=== PATIENT | male | born 1985 | race African-American/Black ===

== ENCOUNTER 2017-09-24 08:35 | Emergency (ER) | payer OTHER ==
--- NOTE | 2017-09-24 09:22 | RAD ---
LEFT SHOULDER THREE VIEWS: History: Shoulder pain. FINDINGS: AC and glenohumeral joints appear unremarkable. There are no signs of fracture or other findings. IMPRESSION: Unremarkable left shoulder. POS: [facility]
[2017-09-24] MEDS ORDERED: Ketorolac Tromethamine 60 MG/2 ML VIAL ONE (11:05)
[2017-09-24] MEDS ORDERED: Dexamethasone 4 mg/ml Vial ONE (11:06)
== END 2017-09-24 11:11 | disposition home or self-care (01) ==
LOC: ERS 08:35
DX: M75.52 Bursitis of left shoulder (principal); I48.91 Unspecified atrial fibrillation; E11.9 Type 2 diabetes mellitus without complications; M86.9 Osteomyelitis, unspecified; E78.5 Hyperlipidemia, unspecified; I10 Essential (primary) hypertension; F17.210 Nicotine dependence, cigarettes, uncomplicated; Z79.4 Long term (current) use of insulin; Z79.899 Other long term (current) drug therapy
CPT/HCPCS: 96372; J1100; J1885

== ENCOUNTER 2018-05-30 09:46 | Emergency (ER) | payer OTHER ==
--- NOTE | 2018-05-30 12:20 | RAD ---
LEFT SHOULDER 3 VIEWS: Date: 05/30/18 COMPARISON: None. HISTORY: Injury, trauma, pain. FINDINGS: There is no widening of the acromioclavicular or coracoclavicular interspace. No displaced fracture o r evidence of dislocation. IMPRESSION: No acute findings. POS: [facility]
--- NOTE | 2018-05-30 12:34 | RAD ---
2 VIEWS CHEST: Date: 05/30/18 COMPARISON: 02/06/16. HISTORY: Injury, trauma, pain. FINDINGS: Lungs are clear. Heart and mediastinal contours are grossly unremarkable. No acute osseous abnormalit y. IMPRESSION: No acute findings. POS: [facility]
== END 2018-05-30 11:21 | disposition home or self-care (01) ==
LOC: ERS 09:46
DX: R07.89 Other chest pain (principal); M25.512 Pain in left shoulder; E11.9 Type 2 diabetes mellitus without complications
CPT/HCPCS: 71046

== ENCOUNTER 2019-08-25 08:17 | Outpatient (CLI) | payer OTHER ==
--- NOTE | 2019-08-25 08:34 | RAD ---
2 view chest: [08/25/2019] Comparison:05/30/2018 HISTORY: Shortness of breath FINDINGS: Heart and mediastinal contours are grossly unremarkable. No pneumothorax or pleural fluid. No focal consolidation or alveolar edema. IMPRESSION: No acute findings.
== END 2019-08-25 08:18 | disposition home or self-care (01) ==
LOC: RAD 08:17
PROVIDERS: ATTEND Internal Medicine Critical Care Medicine
DX: R06.00 Dyspnea, unspecified (principal)
CPT/HCPCS: 71046

== ENCOUNTER 2019-10-26 20:30 | Outpatient (CLI) | payer OTHER | END 2019-10-26 20:31 | disposition home or self-care (01) | LOC: SLEEPLAB 20:30 | PROVIDERS: ATTEND Internal Medicine Critical Care Medicine | DX: G47.33 Obstructive sleep apnea (adult) (pediatric) (principal); R53.83 Other fatigue; R09.89 Other specified symptoms and signs involving the circulatory and respiratory systems | CPT/HCPCS: 95811 ==

== ENCOUNTER 2020-11-30 08:18 | Outpatient (CLI) | payer OTHER | END 2020-11-30 08:19 | disposition home or self-care (01) | LOC: BICULT 08:18 | PROVIDERS: ATTEND Specialist | DX: R10.13 Epigastric pain (principal); N28.89 Other specified disorders of kidney and ureter; N28.1 Cyst of kidney, acquired; N18.9 Chronic kidney disease, unspecified; R16.0 Hepatomegaly, not elsewhere classified | CPT/HCPCS: 76705 ==

== ENCOUNTER 2021-01-27 13:25 | Inpatient (IN) | payer OTHER ==
[2021-01-27 14:40] LABS: #Eosinphils 0.5 thou/uL (0.0-0.7); #Monocytes 0.6 thou/uL (0.11-0.59); #Neutrophils 6.8 thou/uL (1.40-6.50); %Basophils 0.3 % (0.0-1.0); %Eosinophils 4.6 % (0.0-10.0); %Lymphocytes 20.6 % (21.0-51.0); %Neutrophils 68.5 % (42.0-75.0); Hemoglobin 9.5 g/dL (14.0-18.0); Mean Corpuscular HGB CONC 34.5 g/dL (32.0-36.0); Mean Corpuscular Volume 95.7 fL (78.0-98.0); Mean Platelet Volume 6.9 fL (7.4-10.4); Platelet Count 402 thou/uL (130-400); RBC Distribution Width 11.5 % (11.5-14.5); Red Blood Cell (RBC) Count 2.88 mill/uL (4.70-6.10); White Blood Cell (WBC) Count 9.9 thou/uL (4.8-10.8)
[2021-01-27 15:10] LABS: ALT (SGPT) 9 U/L (8-55); AST (SGOT) 10 U/L (5-34); Albumin 3.5 g/dL (3.5-5.0); Alkaline Phosphatase 76 U/L (40-110); Anion Gap 17 mmol/L (10-20); BUN (Urea Nitrogen) 66 mg/dL (8.9-20.6); Bilirubin, Total 0.4 mg/dL (0.2-1.2); Calc. Creatinine Clearance 0 mL/min (70-130); Carbon Dioxide 32 mmol/L (22-29); Chloride 95 mmol/L (98-107); Globulin 4.6 g/dL (2.4-3.5); Glucose 175 mg/dL (70-105); Magnesium 1.3 mg/dL (1.6-2.6); Phosphorus 7.7 mg/dL (2.3-4.7); Potassium 3.2 mmol/L (3.5-5.1); Protein, Total 8.1 g/dL (6.0-8.3); Sodium 141 mmol/L (136-145)
[2021-01-27] MEDS ORDERED: Dextrose 5% in Water 1,000 ML IV PRN (16:38)
[2021-01-27] MEDS ORDERED: Ondansetron PF 4 MG/2 ML Vial IVP PRN (16:38)
[2021-01-27] MEDS ORDERED: Acetaminophen 650 MG Suppository PR PRN (16:38)
[2021-01-27] MEDS ORDERED: Dextrose 50% Abboject 50 ML SYRINGE SLOW IVP PRN (16:38)
[2021-01-27] MEDS ORDERED: Ondansetron ODT 4 MG TAB PO PRN (16:38)
[2021-01-27] MEDS ORDERED: HumaLOG 300 UNITS/3 ML VIAL SC PRN (16:40)
[2021-01-27] MEDS ORDERED: Potassium Chloride 20 MEQ TAB PO SCH (19:00)
[2021-01-27] MEDS ORDERED: Lantus 1000 UNITS/10 ML VIAL SC SCH (21:00)
[2021-01-27] MEDS: Atorvastatin Calcium 40 MG TAB PO SCH (21:47)
[2021-01-27] MEDS: Acetaminophen 325 MG TAB PO PRN (21:47)
[2021-01-27] MEDS ORDERED: Acetaminophen/Codeine 30-300mg Tablet PO PRN (22:21)
[2021-01-28 06:24] LABS: #Basophils 0.1 thou/uL (0.0-0.2); #Eosinphils 0.4 thou/uL (0.0-0.7); #Lymphocytes 2.1 thou/uL (1.20-3.40); #Monocytes 0.7 thou/uL (0.11-0.59); #Neutrophils 6.1 thou/uL (1.40-6.50); %Basophils 0.7 % (0.0-1.0); %Eosinophils 4.7 % (0.0-10.0); %Lymphocytes 22.6 % (21.0-51.0); %Monocytes 7.2 % (0.0-10.0); %Neutrophils 64.8 % (42.0-75.0); Hemoglobin 8.6 g/dL (14.0-18.0); Mean Corpuscular HGB CONC 33.6 g/dL (32.0-36.0); Mean Corpuscular Hemoglobin 32.2 pg (27.0-31.0); Mean Corpuscular Volume 95.7 fL (78.0-98.0); Mean Platelet Volume 6.8 fL (7.4-10.4); Platelet Count 361 thou/uL (130-400); RBC Distribution Width 11.5 % (11.5-14.5); Red Blood Cell (RBC) Count 2.67 mill/uL (4.70-6.10); White Blood Cell (WBC) Count 9.5 thou/uL (4.8-10.8)
[2021-01-28 06:30] LABS: Hemoglobin A1c 5.8 % (4.0-6.0)
[2021-01-28 06:48] LABS: Anion Gap 18 mmol/L (10-20); BUN (Urea Nitrogen) 68 mg/dL (8.9-20.6); Calc. Creatinine Clearance 32 mL/min (70-130); Carbon Dioxide 30 mmol/L (22-29); Cardiac Risk 4.7 (Less than 4.5); Chloride 98 mmol/L (98-107); Cholesterol 146 mg/dl (< 200 Desired); Glucose 130 mg/dL (70-105); HDL Cholesterol 31 mg/dL (>60 Neg Risk); LDL Cholesterol, Calculated 85 mg/dL; Potassium 3.2 mmol/L (3.5-5.1); Sodium 143 mmol/L (136-145); Triglycerides 151 mg/dL (Less than 150)
[2021-01-28 06:49] LABS: Iron 40 ug/dL (65-175); Iron Binding Capacity, Total 209 mcg/dL (261-462)
[2021-01-28 06:52] LABS: Calcium 5.7 mg/dL (7.8-10.44)
[2021-01-28 07:05] LABS: Ferritin 233.05 ng/mL (22-322)
[2021-01-28 07:10] LABS: HBSAg Index 0.19 S/CO (0-0.99); Hep B Core Total Ab Non-Reactive (NonReactive); Hep B Core Total Index 0.11 S/CO (0-0.79); Hep B Surf Ag Non-Reactive S/CO (NonReactive)
[2021-01-28 07:11] LABS: HBSAB Concentration Less than 8.00 mIU/mL; Hep B Surf AB Non-Reactive (NonReactive); Hep C IgG Ab Non-Reactive (NonReactive); Hep C Index 0.07 S/CO (0-0.79)
[2021-01-28] MEDS ORDERED: HumaLOG 300 UNITS/3 ML VIAL SC SCH (08:00)
[2021-01-28] MEDS: Calcium Acetate 667 MG CAP PO SCH ×3 (08:00→15:47)
[2021-01-28 08:43] LABS: SARS-CoV-2 NAA Rapid Test Not Detected (NotDetected)
[2021-01-28] MEDS: Cholecalciferol 1,000 UNITS (25 MCG) TAB PO SCH (09:00)
[2021-01-28] MEDS ORDERED: NIFEdipine XL 30 MG TAB PO SCH (09:00)
[2021-01-28] MEDS ORDERED: Iron Fum,Ps Cmp/Vit C/Niacin [Integra] 1 CAPSULE Capsule PO SCH (09:00)
[2021-01-28] MEDS ORDERED: Iopamidol-370 76% 500 ML 1 ML ONE (10:16)
[2021-01-28] MEDS ORDERED: diphenhydrAMINE 50 MG/ML VIAL ONE (10:40)
[2021-01-28] MEDS ORDERED: Calcium Chloride 1 GM/10 ML Abboject SYRINGE ONE (10:43)
[2021-01-28] MEDS ORDERED: Sodium Bicarb 50 MEQ/50 ML Abboject 8.4% SYRINGE ONE (10:43)
[2021-01-28] MEDS ORDERED: PROPOFOL 200 MG/20 ML VIAL ONE (10:43)
[2021-01-28] MEDS ORDERED: EPINEPHrine 1 MG/10 ML Abboject SYRINGE ONE (10:43)
[2021-01-28] MEDS ORDERED: Rocuronium Bromide 10 MG/ML (10ML VIAL) ONE (10:43)
[2021-01-28] MEDS ORDERED: Propofol 1,000 MG/100 ML VIAL IV ONE (11:29)
[2021-01-28] MEDS ORDERED: Midazolam HCl 2 mg/2 ml Vial ONE (11:30)
[2021-01-28] MEDS ORDERED: Ventilator Sedation Protocol 1 EACH FS SCH (11:30)
[2021-01-28 11:38] LABS: ALT (SGPT) 10 U/L (8-55); AST (SGOT) 10 U/L (5-34); Albumin 3.3 g/dL (3.5-5.0); Alkaline Phosphatase 75 U/L (40-110); Anion Gap 24 mmol/L (10-20); BUN (Urea Nitrogen) 69 mg/dL (8.9-20.6); Bilirubin, Total 0.3 mg/dL (0.2-1.2); Calc. Creatinine Clearance 32 mL/min (70-130); Carbon Dioxide 25 mmol/L (22-29); Chloride 98 mmol/L (98-107); Globulin 4.2 g/dL (2.4-3.5); Glucose 210 mg/dL (70-105); Magnesium 1.5 mg/dL (1.6-2.6); Potassium 3.6 mmol/L (3.5-5.1); Protein, Total 7.5 g/dL (6.0-8.3); Sodium 143 mmol/L (136-145)
[2021-01-28 11:43] LABS: Troponin I Less than 0.010 ng/mL (< 0.028)
[2021-01-28] MEDS ORDERED: Morphine 2 MG/ML VIAL SLOW IVP PRN (11:45)
[2021-01-28] MEDS ORDERED: DISCONTINUE PREVIOUS NARCOTIC PAIN MEDICATIONS AND BENZODIAZEPINES FS SCH (11:45)
[2021-01-28] MEDS ORDERED: Fentanyl BOLUS 250 ML IVPB PRN (11:45)
[2021-01-28] MEDS ORDERED: Propofol BOLUS 1,000 MG/100 ML VIAL IV PRN (11:45)
[2021-01-28 11:46] LABS: Actual Bicarbonate (HCO3a) 27.7 mEq/L (22-28); Base Excess (BEa) 1.8 mEq/L (-2.0 to +3.0); CO2 Tension 49.8 mmHg (35.0-45.0); Calcium, Ionized (arterial) 0.74 mmol/L (1.12-1.30); Carboxyhemoglobin (COHb) 0.2 gm% (0.0-3.0); Hemoglobin (Hb) 10.2 g/dL (14.0-18.0); Potassium - ABG Lab 3.14 mmol/L (3.70-5.30); pH, Arterial 7.36 (7.35-7.45)
[2021-01-28 11:54] LABS: Eosinophils 1 % (0-10); Hemoglobin 10.7 g/dL (14.0-18.0); Lymphocytes 66 % (21-51); MDiff Complete? YES; Mean Corpuscular HGB CONC 33.9 g/dL (32.0-36.0); Mean Corpuscular Hemoglobin 33.2 pg (27.0-31.0); Mean Corpuscular Volume 97.9 fL (78.0-98.0); Mean Platelet Volume 7.3 fL (7.4-10.4); Monocytes 8 % (0-10); Neutrophil 25 % (42-75); Platelet Count 465 thou/uL (130-400); Platelet Morphology Comment Appears Increased; RBC Distribution Width 11.6 % (11.5-14.5); Red Blood Cell (RBC) Count 3.22 mill/uL (4.70-6.10); White Blood Cell (WBC) Count 12.8 thou/uL (4.8-10.8)
[2021-01-28 12:02] LABS: Lactic Acid 5.8 mmol/L (0.5-2.2)
[2021-01-28] MEDS: Lorazepam 2 MG/ML VIAL SLOW IVP PRN (12:02)
[2021-01-28] MEDS ORDERED: levETIRAcetam in NS 1,000 MG in Premix Bag 1 BAG IVPB SCH (12:15)
[2021-01-28] MEDS ORDERED: Fentanyl CADD 100 ML ONE ×2 (12:43→20:28)
[2021-01-28] MEDS ORDERED: Midazolam HCl 5 mg/5 ml Vial SLOW IVP PRN (12:45)
[2021-01-28] MEDS ORDERED: methylPREDNISolone Sod Succ/PF 125 MG/2 ML VIAL IVP SCH (13:30)
[2021-01-28] MEDS ORDERED: Albumin 25% 100 ML ONE (13:48)
[2021-01-28] MEDS: Piperacillin/Tazobactam 2.25 GM in Sodium Chloride 0.9% 100 ML IVPB SCH ×2 (13:52→21:19)
[2021-01-28] MEDS: Propofol 1,000 MG/100 ML VIAL IV PRN ×3 (14:01→21:18)
[2021-01-28 14:51] LABS: CKMB 2.5 ng/mL (0-6.6)
[2021-01-28 15:16] LABS: Puncture Site LRA
[2021-01-28] MEDS: Heparin 5,000 UNITS/ML VIAL SC SCH ×2 (15:47→20:05)
[2021-01-28] MEDS: HumaLOG 300 UNITS/3 ML VIAL SC PRN ×2 (16:12→21:07)
[2021-01-28] MEDS: Scopolamine 1.5 mg/72 hour Patch TD SCH (17:39)
[2021-01-28] MEDS: EPOETIN ALFA-EPBX (ESRD) 2,000 UNIT/ML VIAL IVP SCH (17:40)
[2021-01-28] MEDS: EPOETIN ALFA-EPBX (ESRD) 3,000 UNIT/ML VIAL IVP SCH (17:40)
[2021-01-28 18:03] LABS: CKMB 2.3 ng/mL (0-6.6)
[2021-01-28] MEDS ORDERED: Epoetin (ESRD) 20,000 UNITS/ML IVP SCH (18:59)
[2021-01-28] MEDS: hydrALAZINE 20 MG/ML VIAL SLOW IVP PRN (19:36)
[2021-01-28] MEDS: Atorvastatin Calcium 40 MG TAB PO SCH (20:04)
[2021-01-28] MEDS ORDERED: Prevnar 13-Val Conj/PF 0.5 ML SYRINGE IM ONE (21:00)
[2021-01-28] MEDS: Fentanyl CADD 100 ML IV SCH (21:09)
[2021-01-28] MEDS ORDERED: NIFEdipine 10 MG CAP PER TUBE SCH (22:45)
[2021-01-29] MEDS: Propofol 1,000 MG/100 ML VIAL IV PRN ×5 (01:43→22:28)
[2021-01-29] MEDS: Lorazepam 2 MG/ML VIAL SLOW IVP PRN (01:43)
[2021-01-29 04:12] LABS: #Lymphocytes 1.5 thou/uL (1.20-3.40); #Monocytes 0.2 thou/uL (0.11-0.59); #Neutrophils 12.7 thou/uL (1.40-6.50); %Eosinophils 0.2 % (0.0-10.0); %Lymphocytes 10.6 % (21.0-51.0); %Monocytes 1.2 % (0.0-10.0); %Neutrophils 87.9 % (42.0-75.0); Hemoglobin 8.6 g/dL (14.0-18.0); Mean Corpuscular HGB CONC 34.9 g/dL (32.0-36.0); Mean Corpuscular Hemoglobin 33.3 pg (27.0-31.0); Mean Corpuscular Volume 95.4 fL (78.0-98.0); Mean Platelet Volume 7.1 fL (7.4-10.4); Platelet Count 322 thou/uL (130-400); RBC Distribution Width 11.6 % (11.5-14.5); Red Blood Cell (RBC) Count 2.57 mill/uL (4.70-6.10); White Blood Cell (WBC) Count 14.4 thou/uL (4.8-10.8)
[2021-01-29 04:33] LABS: ALT (SGPT) 11 U/L (8-55); AST (SGOT) 10 U/L (5-34); Albumin 3.2 g/dL (3.5-5.0); Alkaline Phosphatase 60 U/L (40-110); Anion Gap 19 mmol/L (10-20); BUN (Urea Nitrogen) 64 mg/dL (8.9-20.6); Bilirubin, Total 0.6 mg/dL (0.2-1.2); Calc. Creatinine Clearance 32 mL/min (70-130); Calcium 6.4 mg/dL (7.8-10.44); Carbon Dioxide 26 mmol/L (22-29); Chloride 98 mmol/L (98-107); Globulin 3.9 g/dL (2.4-3.5); Glucose 223 mg/dL (70-105); Potassium 2.8 mmol/L (3.5-5.1); Protein, Total 7.1 g/dL (6.0-8.3); Sodium 140 mmol/L (136-145)
[2021-01-29] MEDS: Piperacillin/Tazobactam 2.25 GM in Sodium Chloride 0.9% 100 ML IVPB SCH ×3 (05:01→21:31)
[2021-01-29] MEDS ORDERED: Potassium Chloride 20 MEQ TAB PER TUBE SCH (05:15)
[2021-01-29] MEDS ORDERED: Potassium Chloride 20 MEQ TAB PO SCH (05:15)
[2021-01-29] MEDS: HumaLOG 300 UNITS/3 ML VIAL SC PRN (05:57)
[2021-01-29] MEDS ORDERED: Fentanyl CADD 100 ML ONE ×2 (07:28→19:05)
[2021-01-29] MEDS: Calcium Acetate 667 MG CAP PO SCH ×3 (07:33→16:42)
[2021-01-29] MEDS: NIFEdipine 10 MG CAP PER TUBE SCH (08:22)
[2021-01-29] MEDS: Heparin 5,000 UNITS/ML VIAL SC SCH ×3 (08:22→20:39)
[2021-01-29] MEDS: Cholecalciferol 1,000 UNITS (25 MCG) TAB PO SCH (08:22)
[2021-01-29] MEDS ORDERED: Lantus 1000 UNITS/10 ML VIAL SC SCH (09:00)
[2021-01-29] MEDS ORDERED: Heparin 10,000 UNITS/ 10 ML VIAL ONE (09:08)
[2021-01-29] MEDS: Lantus 1000 UNITS/10 ML VIAL SC SCH (10:58)
[2021-01-29 13:42] LABS: Anion Gap 23 mmol/L (10-20); BUN (Urea Nitrogen) 71 mg/dL (8.9-20.6); Calc. Creatinine Clearance 29 mL/min (70-130); Calcium 6.2 mg/dL (7.8-10.44); Carbon Dioxide 21 mmol/L (22-29); Chloride 101 mmol/L (98-107); Glucose 231 mg/dL (70-105); Potassium 4.1 mmol/L (3.5-5.1); Sodium 141 mmol/L (136-145)
[2021-01-29] MEDS: Fentanyl CADD 100 ML IV SCH (19:07)
[2021-01-29] MEDS: Atorvastatin Calcium 40 MG TAB PO SCH (20:40)
[2021-01-29] MEDS ORDERED: diphenhydrAMINE 25 MG CAP PER TUBE SCH (21:45)
[2021-01-30] MEDS: Propofol 1,000 MG/100 ML VIAL IV PRN ×4 (01:06→22:18)
[2021-01-30] MEDS: Lorazepam 2 MG/ML VIAL SLOW IVP PRN ×5 (02:54→20:59)
[2021-01-30 05:10] LABS: #Eosinphils 0.4 thou/uL (0.0-0.7); #Lymphocytes 2.3 thou/uL (1.20-3.40); #Monocytes 0.7 thou/uL (0.11-0.59); %Basophils 0.1 % (0.0-1.0); %Eosinophils 3.5 % (0.0-10.0); %Lymphocytes 20.4 % (21.0-51.0); %Monocytes 5.7 % (0.0-10.0); %Neutrophils 70.4 % (42.0-75.0); Hemoglobin 7.8 g/dL (14.0-18.0); Mean Corpuscular HGB CONC 34.3 g/dL (32.0-36.0); Platelet Count 317 thou/uL (130-400); RBC Distribution Width 11.7 % (11.5-14.5); Red Blood Cell (RBC) Count 2.38 mill/uL (4.70-6.10); White Blood Cell (WBC) Count 11.4 thou/uL (4.8-10.8)
[2021-01-30] MEDS: Piperacillin/Tazobactam 2.25 GM in Sodium Chloride 0.9% 100 ML IVPB SCH ×3 (05:16→21:01)
[2021-01-30 05:34] LABS: ALT (SGPT) 12 U/L (8-55); AST (SGOT) 9 U/L (5-34); Albumin 3.2 g/dL (3.5-5.0); Alkaline Phosphatase 54 U/L (40-110); Anion Gap 17 mmol/L (10-20); BUN (Urea Nitrogen) 51 mg/dL (8.9-20.6); Bilirubin, Total 0.5 mg/dL (0.2-1.2); Calc. Creatinine Clearance 36 mL/min (70-130); Calcium 6.5 mg/dL (7.8-10.44); Carbon Dioxide 28 mmol/L (22-29); Chloride 99 mmol/L (98-107); Globulin 3.6 g/dL (2.4-3.5); Glucose 152 mg/dL (70-105); Protein, Total 6.8 g/dL (6.0-8.3); Sodium 141 mmol/L (136-145)
[2021-01-30 05:43] LABS: Potassium 2.9 mmol/L (3.5-5.1)
[2021-01-30] MEDS ORDERED: Potassium Chloride 20 MEQ TAB PER TUBE SCH (06:00)
[2021-01-30] MEDS ORDERED: Fentanyl CADD 100 ML ONE (06:27)
[2021-01-30] MEDS ORDERED: Protamine Sulfate 50 MG/5 ML VIAL ONE (06:28)
[2021-01-30] MEDS ORDERED: Sodium Chloride 0.9% 0 ML ONE (06:28)
[2021-01-30] MEDS ORDERED: Bupivacaine 0.25% HCL 30 ML VIAL ONE (06:28)
[2021-01-30] MEDS ORDERED: Heparin 5,000 UNITS/ML VIAL ONE (06:28)
[2021-01-30] MEDS ORDERED: Lidocaine 1% w/Epinephrine 1:100K 20 ML VIAL ONE ×2 (06:28→14:56)
[2021-01-30] MEDS ORDERED: Heparin 10,000 UNITS/ 10 ML VIAL ONE ×2 (06:28→08:49)
[2021-01-30] MEDS: Fentanyl CADD 100 ML IV SCH (06:29)
[2021-01-30] MEDS ORDERED: Potassium Bicarbonate/Cit Ac 20 MEQ TAB PER TUBE SCH (06:30)
[2021-01-30] MEDS ORDERED: Fentanyl 100 MCG/2 ML VIAL ONE (06:35)
[2021-01-30] MEDS: hydrALAZINE 20 MG/ML VIAL SLOW IVP PRN ×2 (06:37→21:23)
[2021-01-30] MEDS ORDERED: Midazolam HCl 2 mg/2 ml Vial ONE (06:46)
[2021-01-30 07:25] LABS: Actual Bicarbonate (HCO3a) 28.4 mEq/L (22-28); Base Excess (BEa) 3.1 mEq/L (-2.0 to +3.0); CO2 Tension 45.6 mmHg (35.0-45.0); Calcium, Ionized (arterial) 0.82 mmol/L (1.12-1.30); O2 Tension (PaO2), arterial 95.3 mmHg (80.0-100.0); Potassium - ABG Lab 3.29 mmol/L (3.70-5.30); pH, Arterial 7.41 (7.35-7.45)
[2021-01-30] MEDS ORDERED: CEFAZOLIN 2 GM in Premix Bag 1 BAG IVPB SCH (07:30)
[2021-01-30 07:36] LABS: Puncture Site RRA
[2021-01-30] MEDS ORDERED: Rocuronium Bromide 10 MG/ML (10ML VIAL) ONE (07:49)
[2021-01-30] MEDS ORDERED: PROPOFOL 200 MG/20 ML VIAL ONE (07:49)
[2021-01-30] MEDS: Calcium Acetate 667 MG CAP PO SCH ×3 (07:54→17:03)
[2021-01-30] MEDS: Cholecalciferol 1,000 UNITS (25 MCG) TAB PO SCH (07:54)
[2021-01-30] MEDS: Lantus 1000 UNITS/10 ML VIAL SC SCH (07:54)
[2021-01-30] MEDS: Heparin 5,000 UNITS/ML VIAL SC SCH ×3 (07:54→20:40)
[2021-01-30] MEDS: NIFEdipine 10 MG CAP PER TUBE SCH (07:55)
[2021-01-30] MEDS: Dexamethasone 4 mg/ml Vial SLOW IVP SCH ×2 (17:03→23:24)
[2021-01-30] MEDS: Atorvastatin Calcium 40 MG TAB PO SCH (20:41)
[2021-01-31] MEDS: Propofol 1,000 MG/100 ML VIAL IV PRN ×8 (01:30→21:17)
[2021-01-31 03:22] LABS: #Eosinphils 0.1 thou/uL (0.0-0.7); #Lymphocytes 0.9 thou/uL (1.20-3.40); #Monocytes 0.2 thou/uL (0.11-0.59); #Neutrophils 13.6 thou/uL (1.40-6.50); %Basophils 0.1 % (0.0-1.0); %Eosinophils 0.3 % (0.0-10.0); %Lymphocytes 6.4 % (21.0-51.0); %Monocytes 1.2 % (0.0-10.0); Hemoglobin 8.4 g/dL (14.0-18.0); Mean Corpuscular HGB CONC 33.9 g/dL (32.0-36.0); Mean Corpuscular Hemoglobin 33.3 pg (27.0-31.0); Mean Corpuscular Volume 98.1 fL (78.0-98.0); Mean Platelet Volume 7.1 fL (7.4-10.4); Platelet Count 308 thou/uL (130-400); RBC Distribution Width 11.6 % (11.5-14.5); Red Blood Cell (RBC) Count 2.52 mill/uL (4.70-6.10); White Blood Cell (WBC) Count 14.7 thou/uL (4.8-10.8)
[2021-01-31] MEDS: Lorazepam 2 MG/ML VIAL SLOW IVP PRN ×6 (03:32→23:01)
[2021-01-31 03:39] LABS: Phosphorus 5.5 mg/dL (2.3-4.7)
[2021-01-31 03:42] LABS: ALT (SGPT) 10 U/L (8-55); AST (SGOT) 9 U/L (5-34); Albumin 3.4 g/dL (3.5-5.0); Alkaline Phosphatase 61 U/L (40-110); Anion Gap 19 mmol/L (10-20); BUN (Urea Nitrogen) 50 mg/dL (8.9-20.6); Bilirubin, Total 0.6 mg/dL (0.2-1.2); Calc. Creatinine Clearance 0 mL/min (70-130); Calcium 6.1 mg/dL (7.8-10.44); Carbon Dioxide 26 mmol/L (22-29); Chloride 100 mmol/L (98-107); Globulin 4.1 g/dL (2.4-3.5); Glucose 221 mg/dL (70-105); Magnesium 1.5 mg/dL (1.6-2.6); Potassium 3.9 mmol/L (3.5-5.1); Protein, Total 7.5 g/dL (6.0-8.3); Sodium 141 mmol/L (136-145)
[2021-01-31] MEDS: Piperacillin/Tazobactam 2.25 GM in Sodium Chloride 0.9% 100 ML IVPB SCH ×3 (05:01→21:18)
[2021-01-31] MEDS: Dexamethasone 4 mg/ml Vial SLOW IVP SCH ×4 (05:01→23:01)
[2021-01-31] MEDS: HumaLOG 300 UNITS/3 ML VIAL SC PRN ×4 (05:04→20:06)
[2021-01-31] MEDS ORDERED: Fentanyl CADD 100 ML ONE ×2 (05:16→23:33)
[2021-01-31] MEDS: Fentanyl CADD 100 ML IV SCH ×2 (05:18→23:41)
[2021-01-31] MEDS: Calcium Acetate 667 MG CAP PO SCH ×3 (07:19→15:01)
[2021-01-31] MEDS: Heparin 5,000 UNITS/ML VIAL SC SCH ×3 (07:19→20:01)
[2021-01-31] MEDS: NIFEdipine 10 MG CAP PER TUBE SCH (07:20)
[2021-01-31] MEDS: Cholecalciferol 1,000 UNITS (25 MCG) TAB PO SCH (07:20)
[2021-01-31] MEDS: Lantus 1000 UNITS/10 ML VIAL SC SCH (07:21)
[2021-01-31] MEDS ORDERED: Heparin 10,000 UNITS/ 10 ML VIAL ONE (08:51)
[2021-01-31 14:51] LABS: Actual Bicarbonate (HCO3a) 26.3 mEq/L (22-28); Base Excess (BEa) 1.6 mEq/L (-2.0 to +3.0); CO2 Tension 41.8 mmHg (35.0-45.0); Calcium, Ionized (arterial) 0.65 mmol/L (1.12-1.30); Carboxyhemoglobin (COHb) 0.3 gm% (0.0-3.0); Hemoglobin (Hb) 8.3 g/dL (14.0-18.0); O2 Tension (PaO2), arterial 96.8 mmHg (80.0-100.0); Potassium - ABG Lab 3.71 mmol/L (3.70-5.30); pH, Arterial 7.42 (7.35-7.45)
[2021-01-31 14:52] LABS: Puncture Site RRA
[2021-01-31] MEDS: Scopolamine 1.5 mg/72 hour Patch TD SCH (15:01)
[2021-01-31] MEDS: EPOETIN ALFA-EPBX (ESRD) 3,000 UNIT/ML VIAL IVP SCH (16:34)
[2021-01-31] MEDS: EPOETIN ALFA-EPBX (ESRD) 2,000 UNIT/ML VIAL IVP SCH (16:35)
[2021-01-31] MEDS: Atorvastatin Calcium 40 MG TAB PO SCH (20:00)
[2021-02-01] MEDS: Propofol 1,000 MG/100 ML VIAL IV PRN ×8 (00:01→20:25)
[2021-02-01 04:32] LABS: #Monocytes 0.4 thou/uL (0.11-0.59); #Neutrophils 13.5 thou/uL (1.40-6.50); %Eosinophils 0.1 % (0.0-10.0); %Lymphocytes 6.9 % (21.0-51.0); %Monocytes 2.3 % (0.0-10.0); %Neutrophils 90.8 % (42.0-75.0); Hemoglobin 8.3 g/dL (14.0-18.0); Mean Corpuscular HGB CONC 33.9 g/dL (32.0-36.0); Mean Corpuscular Hemoglobin 32.8 pg (27.0-31.0); Mean Corpuscular Volume 96.8 fL (78.0-98.0); Mean Platelet Volume 7.1 fL (7.4-10.4); Platelet Count 288 thou/uL (130-400); RBC Distribution Width 11.6 % (11.5-14.5); Red Blood Cell (RBC) Count 2.54 mill/uL (4.70-6.10); White Blood Cell (WBC) Count 14.9 thou/uL (4.8-10.8)
[2021-02-01 04:58] LABS: ALT (SGPT) 9 U/L (8-55); AST (SGOT) 8 U/L (5-34); Albumin 3.5 g/dL (3.5-5.0); Alkaline Phosphatase 59 U/L (40-110); Anion Gap 21 mmol/L (10-20); BUN (Urea Nitrogen) 41 mg/dL (8.9-20.6); Bilirubin, Total 0.5 mg/dL (0.2-1.2); Calc. Creatinine Clearance 42 mL/min (70-130); Calcium 6.4 mg/dL (7.8-10.44); Carbon Dioxide 24 mmol/L (22-29); Chloride 97 mmol/L (98-107); Globulin 4.2 g/dL (2.4-3.5); Glucose 282 mg/dL (70-105); Potassium 4.1 mmol/L (3.5-5.1); Protein, Total 7.7 g/dL (6.0-8.3); Sodium 138 mmol/L (136-145)
[2021-02-01] MEDS: Piperacillin/Tazobactam 2.25 GM in Sodium Chloride 0.9% 100 ML IVPB SCH ×3 (05:22→21:48)
[2021-02-01] MEDS: Dexamethasone 4 mg/ml Vial SLOW IVP SCH ×3 (05:22→16:43)
[2021-02-01] MEDS: HumaLOG 300 UNITS/3 ML VIAL SC PRN ×4 (05:27→21:48)
[2021-02-01] MEDS: NIFEdipine 10 MG CAP PER TUBE SCH (07:03)
[2021-02-01] MEDS: Calcium Acetate 667 MG CAP PO SCH ×2 (07:04→16:41)
[2021-02-01] MEDS: Heparin 5,000 UNITS/ML VIAL SC SCH ×3 (07:04→20:11)
[2021-02-01] MEDS: Cholecalciferol 1,000 UNITS (25 MCG) TAB PO SCH (07:04)
[2021-02-01] MEDS: Lantus 1000 UNITS/10 ML VIAL SC SCH ×2 (07:05→08:14)
[2021-02-01 07:38] LABS: Actual Bicarbonate (HCO3a) 25.8 mEq/L (22-28); Base Excess (BEa) 0.9 mEq/L (-2.0 to +3.0); CO2 Tension 42.3 mmHg (35.0-45.0); Calcium, Ionized (arterial) 0.69 mmol/L (1.12-1.30); Carboxyhemoglobin (COHb) 0.3 gm% (0.0-3.0); Hemoglobin (Hb) 8.8 g/dL (14.0-18.0); O2 Tension (PaO2), arterial 90.3 mmHg (80.0-100.0); Potassium - ABG Lab 4.06 mmol/L (3.70-5.30)
[2021-02-01 07:41] LABS: ALV-art Gradient 142.025 mmHg (0-20); Puncture Site RRA
[2021-02-01] MEDS: Lorazepam 2 MG/ML VIAL SLOW IVP PRN ×3 (08:15→13:25)
[2021-02-01] MEDS ORDERED: Heparin 10,000 UNITS/ 10 ML VIAL ONE ×2 (08:40→13:08)
[2021-02-01] MEDS ORDERED: Fentanyl 100 MCG/2 ML VIAL ONE (13:03)
[2021-02-01] MEDS ORDERED: Midazolam HCl 5 mg/5 ml Vial ONE (13:05)
[2021-02-01] MEDS ORDERED: Sodium Chloride 0.9% 30 ML ONE (13:08)
[2021-02-01] MEDS ORDERED: Lidocaine 1% w/Epinephrine 1:100K 20 ML VIAL ONE (13:08)
[2021-02-01] MEDS ORDERED: Bupivacaine 0.25% HCL 30 ML VIAL ONE (13:08)
[2021-02-01] MEDS ORDERED: Rocuronium Bromide 10 MG/ML (10ML VIAL) ONE (13:25)
[2021-02-01] MEDS: hydrALAZINE 20 MG/ML VIAL SLOW IVP PRN (16:39)
[2021-02-01] MEDS: Dexmedetomidine 1,000 MCG in Sodium Chloride 0.9% 250 ML 240 ML IVPB SCH (17:34)
[2021-02-01] MEDS: Atorvastatin Calcium 40 MG TAB PO SCH (20:11)
[2021-02-02] MEDS: Propofol 1,000 MG/100 ML VIAL IV PRN (02:43)
[2021-02-02] MEDS: Piperacillin/Tazobactam 2.25 GM in Sodium Chloride 0.9% 100 ML IVPB SCH (05:31)
[2021-02-02] MEDS: HumaLOG 300 UNITS/3 ML VIAL SC PRN ×2 (05:33→13:22)
[2021-02-02] MEDS: Dexmedetomidine 1,000 MCG in Sodium Chloride 0.9% 250 ML 240 ML IVPB SCH ×3 (06:38→23:58)
[2021-02-02] MEDS: Calcium Acetate 667 MG CAP PO SCH ×3 (08:16→17:08)
[2021-02-02] MEDS: NIFEdipine 10 MG CAP PER TUBE SCH (08:16)
[2021-02-02] MEDS: Cholecalciferol 1,000 UNITS (25 MCG) TAB PO SCH (08:17)
[2021-02-02] MEDS: Heparin 5,000 UNITS/ML VIAL SC SCH ×3 (08:18→20:24)
[2021-02-02] MEDS: Lantus 1000 UNITS/10 ML VIAL SC SCH (08:21)
[2021-02-02] MEDS ORDERED: Heparin 10,000 UNITS/ 10 ML VIAL ONE (09:14)
[2021-02-02 13:31] LABS: #Lymphocytes 1.9 thou/uL (1.20-3.40); #Monocytes 0.7 thou/uL (0.11-0.59); #Neutrophils 9.9 thou/uL (1.40-6.50); %Basophils 0.1 % (0.0-1.0); %Eosinophils 0.2 % (0.0-10.0); %Lymphocytes 15.3 % (21.0-51.0); %Monocytes 5.9 % (0.0-10.0); %Neutrophils 78.6 % (42.0-75.0); Hemoglobin 9.5 g/dL (14.0-18.0); Mean Corpuscular HGB CONC 34.5 g/dL (32.0-36.0); Mean Corpuscular Hemoglobin 32.9 pg (27.0-31.0); Mean Corpuscular Volume 95.5 fL (78.0-98.0); Mean Platelet Volume 7.3 fL (7.4-10.4); Platelet Count 315 thou/uL (130-400); RBC Distribution Width 11.7 % (11.5-14.5); Red Blood Cell (RBC) Count 2.88 mill/uL (4.70-6.10); White Blood Cell (WBC) Count 12.6 thou/uL (4.8-10.8)
[2021-02-02 13:39] LABS: ALT (SGPT) 510 U/L (8-55); AST (SGOT) 423 U/L (5-34); Albumin 3.5 g/dL (3.5-5.0); Alkaline Phosphatase 61 U/L (40-110); Anion Gap 21 mmol/L (10-20); BUN (Urea Nitrogen) 52 mg/dL (8.9-20.6); Bilirubin, Total 0.4 mg/dL (0.2-1.2); Calc. Creatinine Clearance 41 mL/min (70-130); Calcium 6.5 mg/dL (7.8-10.44); Carbon Dioxide 25 mmol/L (22-29); Chloride 98 mmol/L (98-107); Globulin 4.2 g/dL (2.4-3.5); Glucose 248 mg/dL (70-105); Protein, Total 7.7 g/dL (6.0-8.3); Sodium 140 mmol/L (136-145)
[2021-02-02] MEDS: EPOETIN ALFA-EPBX (ESRD) 3,000 UNIT/ML VIAL IVP SCH (16:53)
[2021-02-02] MEDS: EPOETIN ALFA-EPBX (ESRD) 2,000 UNIT/ML VIAL IVP SCH (16:54)
[2021-02-02] MEDS: Pantoprazole 40 MG GRANULES PACKET PER TUBE SCH (17:08)
[2021-02-02] MEDS: Haloperidol Lactate 5 MG/ML VIAL IM SCH ×2 (18:35→21:05)
[2021-02-02] MEDS: Atorvastatin Calcium 40 MG TAB PO SCH (20:25)
[2021-02-02] MEDS ORDERED: Magnesium 2 GM/50 ML 2 GM in Premix Bag 1 BAG IVPB SCH (23:45)
[2021-02-02] MEDS ORDERED: Lactated Ringer's 250 ML IV SCH (23:45)
[2021-02-03] MEDS ORDERED: Amiodarone 150 MG in Dextrose 5% in Water 100 ML IVPB SCH (01:30)
[2021-02-03] MEDS: Haloperidol Lactate 5 MG/ML VIAL IM SCH ×3 (01:43→10:23)
[2021-02-03 02:13] LABS: ALT (SGPT) 429 U/L (8-55); AST (SGOT) 479 U/L (5-34); Albumin 3.4 g/dL (3.5-5.0); Alkaline Phosphatase 57 U/L (40-110); Bilirubin, Direct 0.3 mg/dL (0.1-0.3); Bilirubin, Total 0.5 mg/dL (0.2-1.2); Magnesium 2.2 mg/dL (1.6-2.6); Potassium 3.9 mmol/L (3.5-5.1); Protein, Total 7.7 g/dL (6.0-8.3)
[2021-02-03] MEDS: Amiodarone 450 MG in Dextrose 5% in Water 250 ML IVPB SCH ×2 (02:54→14:03)
[2021-02-03 03:58] LABS: ALT (SGPT) 404 U/L (8-55); AST (SGOT) 458 U/L (5-34); Albumin 3.3 g/dL (3.5-5.0); Alkaline Phosphatase 55 U/L (40-110); Anion Gap 20 mmol/L (10-20); BUN (Urea Nitrogen) 42 mg/dL (8.9-20.6); Bilirubin, Total 0.5 mg/dL (0.2-1.2); Calc. Creatinine Clearance 43 mL/min (70-130); Calcium 7.4 mg/dL (7.8-10.44); Carbon Dioxide 23 mmol/L (22-29); Chloride 98 mmol/L (98-107); Globulin 4.3 g/dL (2.4-3.5); Glucose 193 mg/dL (70-105); Potassium 3.7 mmol/L (3.5-5.1); Protein, Total 7.6 g/dL (6.0-8.3); Sodium 137 mmol/L (136-145)
[2021-02-03 04:24] LABS: #Eosinphils 0.2 thou/uL (0.0-0.7); #Lymphocytes 2.9 thou/uL (1.20-3.40); #Neutrophils 9.1 thou/uL (1.40-6.50); %Basophils 0.2 % (0.0-1.0); %Eosinophils 1.1 % (0.0-10.0); %Lymphocytes 22.4 % (21.0-51.0); %Monocytes 7.3 % (0.0-10.0); Mean Corpuscular HGB CONC 33.4 g/dL (32.0-36.0); Mean Corpuscular Hemoglobin 32.7 pg (27.0-31.0); Mean Corpuscular Volume 97.7 fL (78.0-98.0); Mean Platelet Volume 8.3 fL (7.4-10.4); Platelet Count 268 thou/uL (130-400); RBC Distribution Width 11.7 % (11.5-14.5); Red Blood Cell (RBC) Count 3.05 mill/uL (4.70-6.10); White Blood Cell (WBC) Count 13.1 thou/uL (4.8-10.8)
[2021-02-03] MEDS: Acetaminophen 325 MG TAB PO PRN (04:56)
[2021-02-03] MEDS: HumaLOG 300 UNITS/3 ML VIAL SC PRN ×3 (06:24→16:07)
[2021-02-03] MEDS: Lantus 1000 UNITS/10 ML VIAL SC SCH (08:00)
[2021-02-03] MEDS: Cholecalciferol 1,000 UNITS (25 MCG) TAB PO SCH (08:00)
[2021-02-03] MEDS: Calcium Acetate 667 MG CAP PO SCH ×3 (08:00→17:10)
[2021-02-03] MEDS: Aspirin 81 mg Enteric Coated Tablet PO SCH (08:00)
[2021-02-03] MEDS: Pantoprazole 40 MG GRANULES PACKET PER TUBE SCH (08:02)
[2021-02-03] MEDS: NIFEdipine 10 MG CAP PER TUBE SCH (08:02)
[2021-02-03] MEDS: Rivaroxaban 15 MG TAB PO SCH (08:25)
[2021-02-03 10:03] VITALS: BMI 45.5
[2021-02-03] MEDS: Scopolamine 1.5 mg/72 hour Patch TD SCH (17:10)
[2021-02-03] MEDS: Atorvastatin Calcium 40 MG TAB PO SCH (20:41)
[2021-02-04 04:25] LABS: #Basophils 0.1 thou/uL (0.0-0.2); #Eosinphils 0.6 thou/uL (0.0-0.7); #Lymphocytes 2.6 thou/uL (1.20-3.40); #Monocytes 1.4 thou/uL (0.11-0.59); #Neutrophils 12.1 thou/uL (1.40-6.50); %Basophils 0.4 % (0.0-1.0); %Eosinophils 3.6 % (0.0-10.0); %Lymphocytes 15.6 % (21.0-51.0); %Monocytes 8.4 % (0.0-10.0); %Neutrophils 72.1 % (42.0-75.0); Hemoglobin 8.7 g/dL (14.0-18.0); Mean Corpuscular HGB CONC 33.6 g/dL (32.0-36.0); Mean Corpuscular Hemoglobin 32.3 pg (27.0-31.0); Mean Corpuscular Volume 96.1 fL (78.0-98.0); Mean Platelet Volume 7.5 fL (7.4-10.4); Platelet Count 317 thou/uL (130-400); RBC Distribution Width 11.8 % (11.5-14.5); White Blood Cell (WBC) Count 16.7 thou/uL (4.8-10.8)
[2021-02-04 05:01] LABS: ALT (SGPT) 247 U/L (8-55); AST (SGOT) 145 U/L (5-34); Albumin 3.6 g/dL (3.5-5.0); Alkaline Phosphatase 62 U/L (40-110); Anion Gap 21 mmol/L (10-20); BUN (Urea Nitrogen) 71 mg/dL (8.9-20.6); Bilirubin, Total 0.5 mg/dL (0.2-1.2); Calc. Creatinine Clearance 27 mL/min (70-130); Calcium 7.3 mg/dL (7.8-10.44); Carbon Dioxide 25 mmol/L (22-29); Chloride 97 mmol/L (98-107); Globulin 4.1 g/dL (2.4-3.5); Glucose 211 mg/dL (70-105); Potassium 3.5 mmol/L (3.5-5.1); Protein, Total 7.7 g/dL (6.0-8.3); Sodium 139 mmol/L (136-145)
[2021-02-04] MEDS: Amiodarone 450 MG in Dextrose 5% in Water 250 ML IVPB SCH (05:09)
[2021-02-04] MEDS: HumaLOG 300 UNITS/3 ML VIAL SC PRN ×2 (06:41→12:08)
[2021-02-04] MEDS: Aspirin 81 mg Enteric Coated Tablet PO SCH (09:07)
[2021-02-04] MEDS: Calcium Acetate 667 MG CAP PO SCH ×3 (09:07→17:59)
[2021-02-04] MEDS ORDERED: Heparin 10,000 UNITS/ 10 ML VIAL ONE (09:08)
[2021-02-04] MEDS: Lantus 1000 UNITS/10 ML VIAL SC SCH (09:08)
[2021-02-04] MEDS: Cholecalciferol 1,000 UNITS (25 MCG) TAB PO SCH (09:12)
[2021-02-04] MEDS: NIFEdipine 10 MG CAP PER TUBE SCH (09:21)
[2021-02-04] MEDS: Rivaroxaban 15 MG TAB PO SCH (09:58)
[2021-02-04] MEDS: Carvedilol 25 MG TAB PO SCH ×2 (09:58→17:59)
[2021-02-04] MEDS: EPOETIN ALFA-EPBX (ESRD) 3,000 UNIT/ML VIAL IVP SCH (17:44)
[2021-02-04] MEDS: EPOETIN ALFA-EPBX (ESRD) 2,000 UNIT/ML VIAL IVP SCH (17:44)
[2021-02-04] MEDS ORDERED: Amiodarone 450 MG in Dextrose 5% in Water 250 ML IVPB SCH (19:27)
[2021-02-04] MEDS: Atorvastatin Calcium 40 MG TAB PO SCH (20:16)
[2021-02-05 05:53] LABS: #Eosinphils 0.6 thou/uL (0.0-0.7); #Lymphocytes 2.8 thou/uL (1.20-3.40); #Monocytes 1.2 thou/uL (0.11-0.59); #Neutrophils 11.6 thou/uL (1.40-6.50); %Basophils 0.2 % (0.0-1.0); %Eosinophils 3.8 % (0.0-10.0); %Lymphocytes 17.1 % (21.0-51.0); %Monocytes 7.3 % (0.0-10.0); %Neutrophils 71.7 % (42.0-75.0); Hemoglobin 9.8 g/dL (14.0-18.0); Mean Platelet Volume 7.5 fL (7.4-10.4); Platelet Count 390 thou/uL (130-400); RBC Distribution Width 11.9 % (11.5-14.5); Red Blood Cell (RBC) Count 3.08 mill/uL (4.70-6.10); White Blood Cell (WBC) Count 16.1 thou/uL (4.8-10.8)
[2021-02-05 06:06] LABS: ALT (SGPT) 168 U/L (8-55); AST (SGOT) 79 U/L (5-34); Albumin 4.1 g/dL (3.5-5.0); Alkaline Phosphatase 68 U/L (40-110); Anion Gap 23 mmol/L (10-20); BUN (Urea Nitrogen) 51 mg/dL (8.9-20.6); Bilirubin, Total 0.5 mg/dL (0.2-1.2); Calc. Creatinine Clearance 31 mL/min (70-130); Calcium 7.9 mg/dL (7.8-10.44); Carbon Dioxide 22 mmol/L (22-29); Chloride 96 mmol/L (98-107); Globulin 4.7 g/dL (2.4-3.5); Glucose 195 mg/dL (70-105); Potassium 3.8 mmol/L (3.5-5.1); Protein, Total 8.8 g/dL (6.0-8.3); Sodium 137 mmol/L (136-145)
[2021-02-05] MEDS: HumaLOG 300 UNITS/3 ML VIAL SC PRN ×3 (06:35→17:14)
[2021-02-05] MEDS ORDERED: Lantus 1000 UNITS/10 ML VIAL SC SCH (09:00)
[2021-02-05] MEDS: Cholecalciferol 1,000 UNITS (25 MCG) TAB PO SCH (09:24)
[2021-02-05] MEDS: Carvedilol 25 MG TAB PO SCH ×2 (09:24→17:14)
[2021-02-05] MEDS: Calcium Acetate 667 MG CAP PO SCH ×3 (09:24→17:14)
[2021-02-05] MEDS: Aspirin 81 mg Enteric Coated Tablet PO SCH (09:24)
[2021-02-05] MEDS: Rivaroxaban 15 MG TAB PO SCH (09:25)
[2021-02-05] MEDS ORDERED: NIFEdipine 10 MG CAP PO SCH (09:45)
[2021-02-05] MEDS: NIFEdipine 10 MG CAP PER TUBE SCH (10:03)
[2021-02-05 15:41] VITALS: BP 173/82; TEMP 98.5
[2021-02-06] MEDS ORDERED: NIFEdipine 10 MG CAP PO SCH (09:00)
== END 2021-02-05 17:35 | disposition home or self-care (01) | DRG 673 ==
LOC: ERS 13:25 → ONC 16:27 → ERHOLD 18:05 → T4-A 19:41 → CCU 01-28 11:31 → 2NO 02-04 18:58
PROVIDERS: ADMIT Student in an Organized Health Care Education/Training Program; ATTEND Student in an Organized Health Care Education/Training Program
PROC: B548ZZA Ultrasonography of Superior Vena Cava, Guidance (ICD-10-PCS; 2021-01-27)
PROC: 5A1955Z Respiratory Ventilation, Greater than 96 Consecutive Hours (ICD-10-PCS; 2021-01-27)
PROC: 5A12012 Performance of Cardiac Output, Single, Manual (ICD-10-PCS; principal; 2021-01-28)
PROC: 0BH17EZ Insertion of Endotracheal Airway into Trachea, Via Natural or Artificial Opening (ICD-10-PCS; 2021-01-28)
PROC: 06HM33Z Insertion of Infusion Device into Right Femoral Vein, Percutaneous Approach (ICD-10-PCS; 2021-01-28)
PROC: B54BZZA Ultrasonography of Right Lower Extremity Veins, Guidance (ICD-10-PCS; 2021-01-28)
PROC: 5A1D70Z Performance of Urinary Filtration, Intermittent, Less than 6 Hours Per Day (ICD-10-PCS; 2021-01-28)
PROC: 03170ZD Bypass Right Brachial Artery to Upper Arm Vein, Open Approach (ICD-10-PCS; 2021-01-30)
PROC: 0JH63XZ Insertion of Tunneled Vascular Access Device into Chest Subcutaneous Tissue and Fascia, Percutaneous Approach (ICD-10-PCS; 2021-01-30)
PROC: 02HV33Z Insertion of Infusion Device into Superior Vena Cava, Percutaneous Approach (ICD-10-PCS; 2021-01-30)
PROC: B5181ZA Fluoroscopy of Superior Vena Cava using Low Osmolar Contrast, Guidance (ICD-10-PCS; 2021-01-30)
PROC: 0JPT3XZ Removal of Tunneled Vascular Access Device from Trunk Subcutaneous Tissue and Fascia, Percutaneous Approach (ICD-10-PCS; 2021-02-01)
PROC: 0JH63XZ Insertion of Tunneled Vascular Access Device into Chest Subcutaneous Tissue and Fascia, Percutaneous Approach (ICD-10-PCS; 2021-02-01)
PROC: 02PY33Z Removal of Infusion Device from Great Vessel, Percutaneous Approach (ICD-10-PCS; 2021-02-01)
PROC: 02HV33Z Insertion of Infusion Device into Superior Vena Cava, Percutaneous Approach (ICD-10-PCS; 2021-02-01)
PROC: B5181ZA Fluoroscopy of Superior Vena Cava using Low Osmolar Contrast, Guidance (ICD-10-PCS; 2021-02-01)
PROC: B548ZZA Ultrasonography of Superior Vena Cava, Guidance (ICD-10-PCS; 2021-02-01)
DX: I12.0 Hypertensive chronic kidney disease with stage 5 chronic kidney disease or end stage renal disease (principal); I46.9 Cardiac arrest, cause unspecified; J96.01 Acute respiratory failure with hypoxia; J69.0 Pneumonitis due to inhalation of food and vomit; N18.6 End stage renal disease; E87.3 Alkalosis; Z68.42 Body mass index [BMI] 45.0-49.9, adult; N17.9 Acute kidney failure, unspecified; E11.22 Type 2 diabetes mellitus with diabetic chronic kidney disease; E78.5 Hyperlipidemia, unspecified; J44.9 Chronic obstructive pulmonary disease, unspecified; I48.0 Paroxysmal atrial fibrillation; E66.01 Morbid (severe) obesity due to excess calories; G47.33 Obstructive sleep apnea (adult) (pediatric); K21.9 Gastro-esophageal reflux disease without esophagitis; F41.9 Anxiety disorder, unspecified; R80.9 Proteinuria, unspecified; E87.6 Hypokalemia; E83.51 Hypocalcemia; E83.42 Hypomagnesemia; E83.39 Other disorders of phosphorus metabolism; D63.1 Anemia in chronic kidney disease; D63.8 Anemia in other chronic diseases classified elsewhere; Z20.822 Contact with and (suspected) exposure to COVID-19; G40.409 Other generalized epilepsy and epileptic syndromes, not intractable, without status epilepticus; E87.70 Fluid overload, unspecified; E88.09 Other disorders of plasma-protein metabolism, not elsewhere classified; I51.7 Cardiomegaly; R45.1 Restlessness and agitation; R26.81 Unsteadiness on feet; R74.01 Elevation of levels of liver transaminase levels; J39.9 Disease of upper respiratory tract, unspecified; Z98.890 Other specified postprocedural states; Z83.3 Family history of diabetes mellitus; Z82.49 Family history of ischemic heart disease and other diseases of the circulatory system; Z83.438 Family history of other disorder of lipoprotein metabolism and other lipidemia; Z88.4 Allergy status to anesthetic agent; Z79.4 Long term (current) use of insulin; Z79.82 Long term (current) use of aspirin; Z79.899 Other long term (current) drug therapy; Z87.891 Personal history of nicotine dependence; Z79.01 Long term (current) use of anticoagulants
CPT/HCPCS: 36415; 36416; 36600; 70450; 71045; 71275; 74018; 80048; 80053; 80061; 82553; 82728; 82805; 83036; 83540; 83550; 83605; 83735; 84100; 84443; 84484; 85025; 86704; 86706; 86803; 86850; 86900; 86901; 87340; 90935; 93005; 93010; 93306; 93970; 94002; 94003; 94640; 94760; C1752; G0257; J0171; J0282; J0360; J1100; J1200; J1630; J1644; J1815; J1953; J2060; J2250; J2543; J2704; J2720; J2930; J3010; J3475; J3490; J7050; J7070; J7620; P9047; Q0163; Q5105; Q9967; S0020; U0002; U0005

== ENCOUNTER 2021-02-10 14:50 | Emergency (ER) | payer OTHER ==
[2021-02-10] MEDS ORDERED: EPINEPHrine 1 MG/10 ML Abboject SYRINGE ONE (14:53)
[2021-02-10] MEDS ORDERED: Sodium Bicarb 50 MEQ/50 ML Abboject 8.4% SYRINGE ONE (14:53)
[2021-02-10] MEDS ORDERED: Calcium Chloride 1 GM/10 ML Abboject SYRINGE ONE (14:53)
== END 2021-02-10 15:03 | disposition expired ==
LOC: ERS 14:50
DX: I46.9 Cardiac arrest, cause unspecified (principal)
CPT/HCPCS: 31500; 92950; 96374; 96375